=== PATIENT | female | born 1950 | race African-American/Black ===

== ENCOUNTER 2017-03-14 17:53 | Emergency (ER) | payer MEDICARE, OTHER ==
[~2017-03-14] VITALS: Ht 167.6 cm; Wt 72.6 kg
[~2017-03-14 17:53] MED LIST: AMLODIPINE BESY10 MG PO; BENICAR20 MG PO; HYDROCHLOROTHIA25 MG PO; [UNRECOGNIZED DRUG - OTHER] ORAL
[2017-03-14 18:41] LABS: BASOPHILS % (AUTO) 0.8 % (0.0-2.0); EOSINOPHILS % (AUTO) 3.1 % (0.0-3.0); LYMPHOCYTES % (AUTO) 26.8 % (20.0-45.0); MEAN CORPUSCULAR HGB CONC 33.6 G/DL (32.0-36.0); MEAN CORPUSCULAR VOLUME 80 FL (80-99); MEAN PLATELET VOLUME 5.8 FL (6.5-10.1); MONOCYTES % (AUTO) 5.3 % (1.0-10.0); NEUTROPHILS % (AUTO) 63.9 % (45.0-75.0); PLATELET COUNT 337 K/UL (150-450); RED BLOOD COUNT 4.93 M/UL (4.20-5.40); WHITE BLOOD COUNT 11.9 K/UL (4.8-10.8)
--- NOTE | 2017-03-14 18:47 | Emergency Room Report ---
History of Present Illness General Chief Complaint: Altered Level of Consciousness Source: Patient, Family Member, EMS Present Illness HPI This patient is brought in by EMS. She was found out on the street wandering the street confused. The patient is unable to give a medical history. She is oriented only to self. She has no specific complaints. She does have a medical alert bracelet stating that she has dementia. Allergies: Coded Allergies: Tim (Verified Allergy, Severe, 05/17/14) Swelling SULFA (SULFONAMIDE ANTIBIOTICS) (Verified Allergy, Unknown, 03/06/09) Patient History Past Medical History: see triage record, HTN, dementia Social History: Denies: alcohol use, drug use, smoking Last Menstrual Period: UNK Reviewed Nursing Documentation: PMH: Agreed, PSxH: Agreed Nursing Documentation-PMH Hx Cardiac Problems: Yes Hx Hypertension: Yes Hx Diabetes: Yes Hx Cancer: No Hx Gastrointestinal Problems: No Hx Neurological Problems: Yes - Cervical disc Disease Hx Memory Loss: Yes - on and off Hx Weakness: Yes - LEFT LEG WEAKNESS OCCASSIONALY Review of Systems All Other Systems: negative except mentioned in HPI Physical Exam Vital Signs Date Time Temp Pulse Resp B/P Pulse Ox O2 Delivery O2 Flow Rate FiO2 03/14/17 17:49 98.1 68 18 116/72 98 Room Air Sp02 EP Interpretation: reviewed, normal General Appearance: no apparent distress, alert, GCS 15, non-toxic Head: normocephalic, atraumatic Eyes: bilateral eye PERRL, bilateral eye normal inspection ENT: hearing grossly normal, normal pharynx, no angioedema, normal voice Neck: full range of motion, supple/symm/no masses Respiratory: chest non-tender, lungs clear, normal breath sounds, speaking full sentences Cardiovascular #1: regular rate, rhythm, no edema Gastrointestinal: normal bowel sounds, non tender, soft, non-distended, no guarding, no rebound Rectal: deferred Musculoskeletal: back normal, gait/station normal, normal range of motion, non- tender Neurologic: alert, responsive, motor strength/tone normal, sensory intact, speech normal, other - Oriented to self only. No focal findings. Psychiatric: mood/affect normal Skin: normal color, no rash, warm/dry, well hydrated Medical Decision Making Diagnostic Impression: Primary Impression: Dementia ER Course This patient was found wandering the streets. EMS was concerned she was altered. However, this patient has been to our emergency department has a history of dementia. We were able to call the patient's daughter and get a hold of her. Apparently the daughter had been waiting for several hours the patient to be dropped off by the [employer] transport company. She has been calling [employer] trying to find her mother. Her mother had been at the adult daycare and has severe dementia. The daughter was able to verify that she is her normal self. I did obtain basic labs and a CT of the head prior to the others arrival given that I did not know this patient's history. These were noncontributory. The daughter was very grateful that her mother was found and was able to take her home. The patient is well appearing without evidence of injury and well-groomed. The patient is discharged to the care of her daughter. Labs Test 03/14/17 18:25 White Blood Count 11.9 K/UL (4.8-10.8) Red Blood Count 4.93 M/UL (4.20-5.40) Hemoglobin 13.3 G/DL (12.0-16.0) Hematocrit 39.6 % (37.0-47.0) Mean Corpuscular Volume 80 FL (80-99) Mean Corpuscular Hemoglobin 27.0 PG (27.0-31.0) Mean Corpuscular Hemoglobin Concent 33.6 G/DL (32.0-36.0) Red Cell Distribution Width 13.0 % (11.6-14.8) Platelet Count 337 K/UL (150-450) Mean Platelet Volume 5.8 FL (6.5-10.1) Neutrophils (%) (Auto) 63.9 % (45.0-75.0) Lymphocytes (%) (Auto) 26.8 % (20.0-45.0) Monocytes (%) (Auto) 5.3 % (1.0-10.0) Eosinophils (%) (Auto) 3.1 % (0.0-3.0) Basophils (%) (Auto) 0.8 % (0.0-2.0) Sodium Level 140 mEQ/L (135-145) Potassium Level 3.9 mEQ/L (3.4-4.9) Chloride Level 99 mEQ/L (98-107) Carbon Dioxide Level 23 mEQ/L (20-30) Anion Gap 18 (5-15) Blood Urea Nitrogen 19 mg/dL (7-23) Creatinine 1.0 mg/dL (0.5-0.9) Estimat Glomerular Filtration Rate > 60 mL/min (>60) Glucose Level 102 mg/dL (74-106) Calcium Level 9.6 mg/dL (8.6-10.2) Total Bilirubin 0.5 mg/dL (0.0-1.2) Aspartate Amino Transf (AST/SGOT) 20 U/L (5-40) Alanine Aminotransferase (ALT/SGPT) 8 U/L (3-33) Alkaline Phosphatase 67 U/L (35-104) Troponin I < 0.30 ng/mL (<=0.30) Total Protein 7.2 g/dL (6.6-8.7) Albumin 4.1 g/dL (3.5-5.2) Globulin 3.1 g/dL Albumin/Globulin Ratio 1.3 (1.0-2.7) Thyroid Stimulating Hormone (TSH) 0.333 uIU/mL (0.300-4.500) Salicylates Level < 1 mg/dL (10-30) Acetaminophen Level < 10 ug/mL (10-30) Serum Alcohol < 10 mg/dL CT/MRI/US Diagnostic Results CT/MRI/US Diagnostic Results : Imaging Test Ordered: CT head Impression No acute findings. No acute hemorrhage. See official report. Last Vital Signs Date Time Temp Pulse Resp B/P Pulse Ox O2 Delivery O2 Flow Rate FiO2 03/14/17 17:49 98.1 68 18 116/72 98 Room Air Status: improved Disposition: HOME, SELF-CARE Condition: Improved ABIGAIL CHERRY D.O. Mar 14, 2017 18:47
[2017-03-14 19:00] LABS: TROPONIN I < 0.30 ng/mL (<=0.30)
[2017-03-14 19:03] LABS: ACETAMINOPHEN < 10 ug/mL (10-30); ALANINE AMINOTRANSFERASE 8 U/L (3-33); ALBUMIN/GLOBULIN RATIO 1.3 (1.0-2.7); ALCOHOL < 10 mg/dL; ANION GAP 18 (5-15); ASPARTATE AMINO TRANSFERASE 20 U/L (5-40); CALCIUM 9.6 mg/dL (8.6-10.2); CARBON DIOXIDE 23 mEQ/L (20-30); CHLORIDE 99 mEQ/L (98-107); GLOMERULAR FILTRATION RATE > 60 mL/min (>60); HEMOLYSIS 13; POTASSIUM 3.9 mEQ/L (3.4-4.9); SODIUM 140 mEQ/L (135-145); TOTAL PROTEIN 7.2 g/dL (6.6-8.7)
[2017-03-14 19:13] LABS: THYROID STIMULATING HORMONE 0.333 uIU/mL (0.300-4.500)
[2017-03-14 19:15] VITALS: BP 118/76
[2017-03-14 19:55] VITALS: BP 136/76
--- NOTE | 2017-03-15 08:39 | Diagnostic Imaging Report ---
Indication: AMS Technique: spiral acquisitions obtained through the brain. Angled axial and coronal 5 x 5 mm slices were reconstructed. No IV contrast utilized. Radiation dose was minimized using automated exposure control Total dose length product 1369 mGycm. CTDIvol(s) 70 mGy Comparison: MRI dated 02/24/2014 FINDINGS: No acute hemorrhage or edema. No mass effect or midline shift. There is age-related enlargement of the ventricles and extra axial CSF spaces. There is periventricular deep white matter ischemic change. Normal montana-white differentiation. Visualized orbits are unremarkable. Visualized sinuses are unremarkable. Intact calvarium. Allowing for the differences in the modalities, no significant interim change from prior brain MRI IMPRESSION: Chronic and age-related changes. Negative for acute intracranial bleed or mass effect This agrees with the preliminary interpretation provided overnight by Dr. Rodas The CT scanner at [facility] is accredited by the [employer] and the scans are performed using protocols designed to limit radiation exposure to as low as reasonably achievable to attain images of sufficient resolution adequate for diagnostic evaluation
--- NOTE | 2017-03-15 16:37 | Cardiology Report ---
APPROVED REPORT EKG Measurement Heart [id number] Normal sinus rhythm Possible Left atrial enlargement Nonspecific ST and T wave abnormality Abnormal ECG
== END 2017-03-14 19:55 | disposition home or self-care (01) ==
LOC: EDBD 17:53 → EDSEX 17:53 → EMR 19:08
DX: F03.91 Unspecified dementia, unspecified severity, with behavioral disturbance (principal); Z91.83 Wandering in diseases classified elsewhere; E11.9 Type 2 diabetes mellitus without complications; I10 Essential (primary) hypertension; Z88.2 Allergy status to sulfonamides
CPT/HCPCS: 36415; 70450; 80053; 84443; 84484; 85025; 93005; 99284; G0480; 80329